=== PATIENT | female | born 1980 | race Caucasian/White ===

== ENCOUNTER 2023-04-17 10:34 | Emergency (ER) | payer BC, SELFPAY ==
--- NOTE | ~2023-04-17 | XR_ITS ---
EXAMINATION: XR CHEST CLINICAL INFORMATION: Cough. COMPARISON: None available. TECHNIQUE: 2 views of the chest were obtained. FINDINGS: No significant abnormality is noted involving the heart, lungs, mediastinum, bony thorax or soft tissues. XR/XR chest 2V IMPRESSION: Unremarkable chest examination.
[2023-04-17 10:55] VITALS: BP 165/99; PULSE 86; RESP 20; TEMP 36.7; O2SAT 97; BMI 29.3
[2023-04-17 11:46] LABS: Influenza A PCR NEGATIVE (Negative); Influenza B PCR NEGATIVE (Negative); Resp Syncy Virus RNA Qual PCR POSITIVE (Negative); SARS COV2 PCR INHOUSE NEGATIVE (Negative)
--- NOTE | 2023-04-17 13:54 | ED.URI ---
HPI - URI/Sore Throat General Chief Complaint: Upper Respiratory Symptoms Stated Complaint: Cough/Asthma Time Seen by Provider: 04/17/23 13:44 Source: patient Limitations: no limitations History of Present Illness HPI Narrative: 42 years old with past medical history of asthma, epilepsy, presents emergency room for cough and shortness of breath. Patient reports that she completed a course of steroids 3 weeks ago for similar symptoms, after the course patient reports the symptoms had resolved however on Sunday she started having new episodes of shortness of breath and dry cough which have continued since then. Patient denies productive cough, chest pain or fever. Reports worsening shortness of breath on exertion but at the time of assessment she is able to speak in full sentences. Patient denies abdominal pain nausea or vomiting. She has being using albuterol nebs twice a day with mild improvement of her symptoms. NO recent falls Prior to my assessment patient had chest x-ray and COVID flu RSV swab. No headaches, blurry vision was in her speech. No sinus pain. MD elicited complaint: cough Related Data Previous Rx's Medication Instructions Recorded dexamethasone 4 mg tablet 4 mg PO ONCE #2 tabs 04/17/23 Allergies Allergy/AdvReac Type Severity Reaction Status Date / Time pineapple Allergy Anaphylaxis Verified 04/17/23 10:59 Review of Systems Review of Systems: Yes all other systems are reviewed and are negative Physical Exam Vital Signs: Vital Signs: Last Vital Signs Temp 98.1 F 04/17/23 10:55 Pulse 86 04/17/23 10:55 Resp 20 04/17/23 10:55 BP 165/99 H 04/17/23 10:55 Pulse Ox 97 04/17/23 10:55 O2 Del Method Room Air 04/17/23 10:55 BMI result Body Mass Index 29.3 Const: General: alert HEENT: Head: Yes normocephalic Eyes: Pupils: Equal, round and reactive pupils present Chest: Chest palpation & inspection: normal inspection of the chest Resp: Effort & Inspection: normal respiratory effort and able to speak in complete sentences Auscultation: clear to auscultation bilaterally GI: Inspection: Yes normal to inspection Palpation (GI): Soft to palpation Auscultation: normal bowel sounds Skin: General skin exam: no rashes or lesions noted Neuro: Cranial nerves: Yes Equal, round and reactive pupils present Medical Decision Making Medical Decision Making [facility] Narrative: 42 years old presented to the emergency room for shortness of breath and dry cough. I personally reviewed the chest x-ray that shows no consolidation. RSV swab positive. Patient vital signs are within normal limits at this time does not patient required further observation or admission. will start on dexamethasone. Will DC home and recommend to follow up with PCP in 2 or 3 days. Return precautions discussed with patient, patient understands and agrees with plan I also recommended patient to continue to use albuterol nebs at home. Differential Diagnosis Bronchitis, URI, less likely pneumonia Admission/Observation Consideration of admission/observation: Escalation of care including admission/observation considered Lab Data [facility] Lab Attestation statement: I reviewed the patient's lab results. Labs: Lab Results 04/17/23 Range/Units 11:02 Influenza Type A (PCR) NEGATIVE (Negative) Influenza Type B (PCR) NEGATIVE (Negative) RSV RNA Qual (PCR) POSITIVE A (Negative) SARS-CoV-2 RNA (RT-PCR) NEGATIVE (Negative) Independent Interpretation I performed an independent interpretation of an: Plain X-Ray Interpretation: Normal chest x-ray Tests considered The following testing was considered but not selected: cbc, bmp Prescription Management I considered prescription management with: Antibiotic No signs of pneumonia with all the antibiotic. Discharge Plan Discharge Clinical Impression: Upper respiratory infection, Bronchitis, Asthma exacerbation Patient Disposition: Home, Self-Care Instructions: Asthma (ED) Additional Instructions: You were seen in the emergency room for shortness of breath and cough. Your physical exam is consistent with upper respiratory tract infection/asthma exacerbation For the season we started you on a course of steroids. We gave you the 1st dose in the emergency room take a 2nd dose 36 hours after the 1st on prescription was sent to her pharmacy We also recommend to use albuterol nebs Q 6 hours at home and if needed Q 4 hours. If you notice worsening symptoms or if you need nebs more frequently than every 4 hours please return to the emergency room for evaluation Follow-up with your primary care physician a few days [place] Prescriptions: New dexamethasone 4 mg tablet 4 mg PO ONCE Qty: 2 0RF Rx Instructions: take 2 tabs (8mg) in 36 hours. Stand Alone Forms: Work/School Release
[2023-04-17] MEDS: dexAMETHasone 2 MG TABLET 10 MG PO (14:21)
--- NOTE | 2023-04-17 14:26 | PC.NURSE ---
nad, skin wpd, occasional cough but no resp distress
== END 2023-04-17 14:27 | disposition home or self-care (01) ==
PROVIDERS: Emergency Provider Student in an Organized Health Care Education/Training Program; PCP Family Medicine
DX: J06.9 Acute upper respiratory infection, unspecified (principal); B97.4 Respiratory syncytial virus as the cause of diseases classified elsewhere; J40 Bronchitis, not specified as acute or chronic; J45.901 Unspecified asthma with (acute) exacerbation; Z20.822 Contact with and (suspected) exposure to COVID-19; Z20.828 Contact with and (suspected) exposure to other viral communicable diseases
CPT/HCPCS: 0241U; 71046; 99282; 99283; J8540

== ENCOUNTER 2024-05-05 09:21 | Emergency (ER) | payer BC, SELFPAY ==
--- NOTE | ~2024-05-05 | XR_ITS ---
EXAMINATION: XR CHEST CLINICAL INFORMATION: Cough COMPARISON: Chest radiograph 04/17/2023. TECHNIQUE: Frontal view of the chest was obtained. FINDINGS: The lungs are hypoexpanded. Focal opacity in the medial right lung base. The left lung appears clear. No pleural effusions or pneumothorax. The cardiac mediastinal silhouette is within normal limits. No acute osseous abnormality. XR/XR chest 1V IMPRESSION: Focal opacity in the medial right lung base, concerning for infiltrate. Follow-up is recommended to assess for resolution. Electronically signed by: Nikhil Reed MD 05/05/2024 01:05 PM [facility]
[2024-05-05 09:41] VITALS: BP 144/94; PULSE 112; RESP 18; TEMP 37.2; O2SAT 97; BMI 29.3
[2024-05-05 09:56] LABS: MANUAL DIFF FLAG NO
[2024-05-05 09:58] LABS: Basophils Percent Auto 0.3 % (0-2); Eosinophils Percent Auto 0.1 % (0-4); Hematocrit 40.5 % (37.0-47.0); Hemoglobin 13.6 g/dl (12.0-16.0); Imm Gran Abs Auto 0.05 X10*3/uL (0.00-0.03); Imm Gran Pct Auto 0.5 % (0.0-0.4); Lymphocytes Absolute Auto 1.2 X10*3/uL (1.2-4.9); Lymphocytes Percent Auto 11.2 % (20-40); Mean Corpuscular HGB Conc 33.6 g/dl (31.0-35.0); Mean Corpuscular Hemoglobin 29.3 pg (27.0-33.0); Mean Corpuscular Volume 87.3 fL (80.0-98.0); Mean Platelet Volume 10.1 fL (9.4-12.3); Monocytes Absolute Auto 0.6 X10*3/uL (0.1-1.2); Monocytes Percent Auto 5.7 % (2-11); Neutrophils Absolute Auto 8.5 x10*3/uL (2.0-8.3); Neutrophils Percent Auto 82.2 % (45-73); Platelet Count 201 X10*3/uL (160-400); Red Blood Count 4.64 X10*6/uL (4.20-5.50); Red Cell Distribution Width 12.9 % (11.0-16.0); White Blood Count 10.3 X10*3/uL (4.8-10.8)
[2024-05-05 10:13] LABS: Alanine Aminotransferase 17 U/L (0-31); Albumin Level 4.2 g/dL (3.5-5.0); Alkaline Phosphatase 81 U/L (39-117); Anion Gap 11 (12-20); Aspartate Amino Transferase 19 U/L (5-31); Bilirubin Total 0.5 mg/dL (0.0-1.0); Blood Urea Nitrogen 9 mg/dL (9-16); Calcium 9.4 mg/dL (8.4-10.2); Carbon Dioxide 25 mmol/L (22-29); Chloride 103 mmol/L (96-108); Creatinine Clr Calc Pharmacy 76.8; Estimated Glomerular Filt Rate > 60; Glucose Random 139 mg/dL (60-115); Magnesium 2.2 mg/dL (1.6-2.6); Potassium 4.6 mmol/L (3.3-5.1); Sodium 134 mmol/L (135-145); Total Protein 8.3 g/dL (6.5-8.0)
[2024-05-05 10:14] LABS: COVID-19 Test Negative (Negative); IDNOW Serial# 08D9AD1C; IDNOW Serial# 152EDE1D; Influenza A Negative (Negative); Influenza B2 Negative (Negative)
--- NOTE | 2024-05-05 14:07 | ED.GENADULT ---
HPI - General Adult General Chief complaint: General Medical Stated complaint: lightheaded, dizzy, hx of epilepsy Time Seen by Provider: 05/05/24 14:07 History of Present Illness ED Provider: Ely ANTONIO narrative: The patient is a 43-year-old woman who says that she started to feel unwell 2 days ago on Sunday. She developed a cough. Since then she has had ongoing coughing and chills. She has not had any definite fever but has not taken her temperature much. She has also had some nausea and vomiting. She says that sometimes she coughs so much she vomits. Related Data Previous Rx's ?Medication ?Instructions ?Recorded cefuroxime axetil 500 mg tablet 500 mg PO BID 8 days #16 tabs 05/05/24 ondansetron HCl 4 mg tablet 4 mg PO Q6H PRN nausea and 05/05/24 vomiting #10 tabs Allergies Allergy/AdvReac Type Severity Reaction Status Date / Time pineapple Allergy Anaphylaxis Verified 05/05/24 09:43 Review of Systems Review of Systems: Yes all other systems are reviewed and are negative [facility] Social History Social History Advance Directives: No Advance Directives Information Provided: Yes Do you have a plan to hurt others: No Plan Physical Exam ED Vital Signs: Vital Signs - 24 hr 05/05/24 09:41 05/05/24 14:44 05/05/24 18:29 Temperature 98.9 F 97.8 F Pulse Rate 112 H 107 H 90 Respiratory Rate 18 18 19 Blood Pressure 144/94 H 147/90 H Pulse Oximetry 97 97 Oxygen Delivery Method Room Air Room Air 05/05/24 18:53 Temperature 97.8 F Pulse Rate 90 Respiratory Rate 19 Blood Pressure 147/90 H Pulse Oximetry 97 Oxygen Delivery Method Room Air BMI result Body Mass Index 29.3 Const Other: The patient is a 43-year-old who is awake and alert. They look somewhat under the weather but not acutely toxic. HENMT Head: Yes normal to inspection Face and sinus: Yes normal facial exam Mouth: Normal oral and palatal mucosa present and moist mucous membranes Eyes General: appearance normal, both eyes and all related structures Neck Neck: Yes full ROM and Yes supple Resp Effort & Inspection: normal respiratory effort Auscultation: clear to auscultation bilaterally Cardio Rate: tachycardic Rhythm: regular rhythm Heart sounds: S1 normal heart sound present and S2 normal heart sound present GI Other: Abdomen is soft and nontender Skin General skin exam: no rashes or lesions noted Neuro Other: The patient is awake and alert with a normal mental status. Cranial nerves are grossly intact. The patient moves her extremities symmetrically and appropriately and seems grossly neurologically intact. Extrem Other: No peripheral edema Medications Administered Discontinued Medications Generic Name Dose Route Start Last Admin Trade Name [id number] PRN Reason Stop Dose Admin Albuterol/Ipratropium 3 ml 05/05/24 14:18 05/05/24 14:44 Albuterol/Iprat 2.5/0.5mg 3 Ml Ampul.Neb INHALE 05/05/24 14:19 3 ml ONCE ONE Administration Ceftriaxone Sodium 1 gm 05/05/24 14:23 05/05/24 14:50 Ceftriaxone Sodium 1 Gm Vial IVPUSH 05/05/24 14:24 1 gm ONCE ONE Administration Sodium Chloride 1,000 mls @ 999 mls/hr 05/05/24 14:30 05/05/24 17:42 Ns IV 05/05/24 15:30 Infused .Q1H1M SYDNEY Infusion Ketorolac Tromethamine 10 mg 05/05/24 14:17 05/05/24 15:19 Ketorolac Tromethamine 15 Mg/Ml Vial IVPUSH 05/05/24 14:18 10 mg ONCE ONE Administration Metoclopramide HCl 10 mg 05/05/24 14:17 05/05/24 15:20 Metoclopramide Hcl 10 Mg/2 Ml Vial IVPUSH 05/05/24 14:18 10 mg ONCE ONE Administration Medical Decision Making Medical Decision Making [facility] Narrative: The patient presents with a cough and chills. She has also had some nausea and vomiting. Somewhat to my surprise her chest x-ray shows a pneumonia in the right lower lung field. The patient was tachycardic but not hypoxic or in any respiratory distress. The patient was given IV fluids. She was treated for her headache with ketorolac and metoclopramide. She was given a dose of IV ceftriaxone. She seemed to feel considerably better. She was able to tolerate oral intake. She looks well enough for discharge and she was feeling well enough to go home. She will be discharged with a prescription for cefuroxime and for ondansetron. Lab Data 05/05/24 09:53 05/05/24 09:53 Labs: Lab Results 05/05/24 05/05/24 Range/Units 09:53 15:11 WBC 10.3 (4.8-10.8) X10*3/uL RBC 4.64 (4.20-5.50) X10*6/uL Hgb 13.6 (12.0-16.0) g/dl Hct 40.5 (37.0-47.0) % MCV 87.3 (80.0-98.0) fL MCH 29.3 (27.0-33.0) pg MCHC 33.6 (31.0-35.0) g/dl RDW 12.9 (11.0-16.0) % Plt Count 201 (160-400) X10*3/uL MPV 10.1 (9.4-12.3) fL Immature Gran % (Auto) 0.5 H (0.0-0.4) % Neut % (Auto) 82.2 H (45-73) % Lymph % (Auto) 11.2 L (20-40) % Leake % (Auto) 5.7 (2-11) % Eos % (Auto) 0.1 (0-4) % Baso % (Auto) 0.3 (0-2) % Lymph # (Auto) 1.2 (1.2-4.9) X10*3/uL Leake # (Auto) 0.6 (0.1-1.2) X10*3/uL Eos # (Auto) 0.0 (0.0-0.4) X10*3/uL Baso # (Auto) 0.0 (0.0-0.2) X10*3/uL Abs Immat Gran (auto) 0.05 H (0.00-0.03) X10*3/uL Absolute Neuts (auto) 8.5 H (2.0-8.3) x10*3/uL Absolute Nucleated RBC 0.000 (0.0-0.012) X10*3/uL Nucleated RBC % (auto) 0.0 (0.0-0.2) /100WBC Sodium 134 L (135-145) mmol/L Potassium 4.6 (3.3-5.1) mmol/L Chloride 103 (96-108) mmol/L Carbon Dioxide 25 (22-29) mmol/L Anion Gap 11 L (12-20) BUN 9 (9-16) mg/dL Creatinine 0.89 (0.5-1.4) mg/dL Estim Creat Clear Calc 76.8 Estimated GFR > 60 Random Glucose 139 H (60-115) mg/dL Lactic Acid 1.9 (0.5-2.0) mmol/L Calcium 9.4 (8.4-10.2) mg/dL Magnesium 2.2 (1.6-2.6) mg/dL Total Bilirubin 0.5 (0.0-1.0) mg/dL AST 19 (5-31) U/L ALT 17 (0-31) U/L Alkaline Phosphatase 81 (39-117) U/L Total Protein 8.3 H (6.5-8.0) g/dL Albumin 4.2 (3.5-5.0) g/dL COVID-19 ([facility]) Negative (Negative) COVID-19 Clin Com See Note Influenza Type A (PARUL) Negative (Negative) Influenza Type B (PARUL) Negative (Negative) Influenza A & B Note See Note Discharge Plan Discharge Clinical Impression: Pneumonia involving right lung, Nausea & vomiting Patient Disposition: Home, Self-Care Additional Instructions: Your x-ray shows that you have a pneumonia in your right lung. You has been started on antibiotics in the emergency room. Please take your next dose of the oral antibiotic prescribed first thing tomorrow morning. After that take the antibiotic 2 times a day, approximately every 12 hours. A prescription for ondansetron has been sent as well. You may use this on an as-needed basis for nausea. Drink lot of fluids. Follow up with your regular doctor. You should probably have a repeat chest x-ray in a few weeks when you are feeling better to make sure that the pneumonia has completely resolved. Return to the emergency room if worse. Prescriptions: New cefuroxime axetil 500 mg tablet 500 mg PO BID 8 Days Qty: 16 0RF ondansetron HCl 4 mg tablet 4 mg PO Q6H PRN (Reason: nausea and vomiting) Qty: 10 0RF Referrals: Marshall Pierce MD [Primary Care Provider] - (pneumonia, nausea and vomiting) Stand Alone Forms: Work/School Release Interventions: ED Discharge Assessment Last Done: 05/05/24 18:53 Discharge Date/Time: 05/05/24 18:53 Print Language: Turkish
[2024-05-05 14:44] VITALS: PULSE 107; RESP 18; O2SAT 98
[2024-05-05] MEDS: Albuterol/Iprat 2.5/0.5MG 3 ML AMPUL.NEB INHALE (14:44)
[2024-05-05] MEDS: cefTRIAXone sodium 1 GM VIAL IVPUSH (14:50)
[2024-05-05] MEDS: 0.9 % Sodium Chloride 1,000 ML 999 ML IV (15:09)
[2024-05-05] MEDS: Ketorolac Tromethamine 15 MG/ML VIAL 10 MG IVPUSH (15:19)
[2024-05-05] MEDS: Metoclopramide HCl 10 MG/2 ML VIAL IVPUSH (15:20)
[2024-05-05 15:34] LABS: Lactic Acid 1.9 mmol/L (0.5-2.0)
[2024-05-05 18:29] VITALS: BP 147/90; PULSE 90; RESP 19; TEMP 36.6; O2SAT 97
[2024-05-05 18:53] VITALS: BP 147/90; PULSE 90; RESP 19; TEMP 36.6; O2SAT 97
[2024-05-08 09:08] LABS: Levetiracetam Keppra 6.2 mcg/mL (6.0-46.0)
== END 2024-05-05 18:53 | disposition home or self-care (01) ==
PROVIDERS: Emergency Provider Emergency Medicine; PCP Family Medicine
DX: J18.9 Pneumonia, unspecified organism (principal); R11.2 Nausea with vomiting, unspecified; R42 Dizziness and giddiness; R05.9 Cough, unspecified; R00.0 Tachycardia, unspecified; R51.9 Headache, unspecified; Z11.52 Encounter for screening for COVID-19; Z79.899 Other long term (current) drug therapy
CPT/HCPCS: 36415; 71045; 80053; 80177; 83605; 83735; 85025; 87040; 87502; 87635; 94640; 96361; 96374; 96375; 99284; J0696; J1885; J2765